=== PATIENT | female | born 1960 | race Caucasian/White ===

== ENCOUNTER 2024-10-31 08:40 | Observation (INO) ==
--- NOTE | 2024-10-29 08:31 | Communication Note ---
Date of Service: October 29, 2024 - Patient mentioned feeling an abnormal heart heart rate per PAT RN, this is also noted as chronic in PMHx. Message left requesting patient return call.
--- NOTE | 2024-10-29 09:51 | Anesthesiology Consultation ---
Date of Service October 29, 2024 Assessment & Plan (1) Encounter for pre-operative examination: Chart Review Chart Review: Pending: Refer to Additional Notes / Consult section (pending labs, EKG, as well as most recent PCP note) and Patient NOT seen in Pre Admission Testing Infectious Disease screening: Per PAT nursing assessment on 10/23/24, No known infectious disease contacts in past 10 days or current infectious disease symptoms. No recent travel outside the country. History Surgery Operation Date: 10/31/24 10:30 Proposed Procedures p Robotic assisted Hysterectomy, Bilateral Salpingo-Oophorectomy Ureterosacral Ligament Suspension, Anterior Colporrhaphy and Cystoscopy, Possible Sling - Jaylon Gurrola MD Height/Weight Height: 5 ft 3 in Weight: 65.771 kg Allergies Allergy/AdvReac Type Severity Reaction Status Date / Time No Known Allergies Allergy Verified 10/23/24 08:51 Medications Home Medications Medication Instructions Recorded Confirmed Last Taken atorvastatin 10 mg tablet (Lipitor) 10 mg PO QAM 10/23/24 10/23/24 Unknown fexofenadine-pseudoephedrine ER 1 tab PO QAM PRN allergis 10/23/24 10/23/24 Unknown 180 mg-240 mg tablet,ext.release 24 hr (Liv-D 24 Hour) fluticasone 250 mcg-salmeterol 50 1 inh inhalation BID 10/23/24 10/23/24 Unknown mcg/dose blistr powdr for inhalation (Advair Diskus) multivitamin-ferrous 1 tab PO DAILY 10/23/24 10/23/24 Unknown fumarate-folic acid 18 mg-400 mcg tablet (Centrum) pantoprazole 40 mg tablet,delayed 40 mg PO QAM 10/23/24 10/23/24 Unknown release Past Medical History Medical History (Updated 10/29/24 @ 09:51 by Tamera Figueroa PA-C) COPD (chronic obstructive pulmonary disease) "mild" ; uses Advair Frequent urination GERD (gastroesophageal reflux disease) History of anesthesia reaction 'mildly hard time waking up' per pt HLD (hyperlipidemia) Hx of colonic polyps Irregular heart beats No engraver picture; pt states that she 'occasionally feels irregular beats' Seasonal allergies Past Surgical History Surgical History History of esophagogastroduodenoscopy (EGD) History of lumbar surgery (2018) Hx of cholecystectomy (1977) Hx of colonoscopy with polypectomy Hx of varicose vein ligation and stripping (2009) Social History Smoking Status: Never smoker Do You Dip or Chew Tobacco: No Hx Alcohol Use: Yes alcohol intake frequency: a few times a month Hx Substance Use: No substance use type: does not use Testing Stress Test Date: 02/04/00 Type: exercise Findings: + WNL Exercise stress ECHO negative for inducible ischemia. The stress EKG response showed no evidence of ischemia. Occasional PVCs were noted during recovery stage. Baseline EKG was normal. 85% MPHR achieved (7METS) Resting ECHO: EF 55-59%, Gr I DD, no RWMA, No significant valve disease
--- NOTE | 2024-10-31 05:15 | History & Physical Report ---
Date of Service October 31, 2024 Assessment & Plan (1) Uterovaginal prolapse, incomplete: Plan: Failed pessary therapy and now desires surgery. She prefers robotic hysterectomy, bso, uterosacral ligament suspension, anterior colporrhaphy, and cystoscopy. We reviewed the risks of infection, bleeding, injury, pain, incontinence, failure. All questions answered. Informed consent confirmed. Present on Admission?: Yes Admission and Anticipated Discharge Date Admission Date: 10/31/2024 Anticipated date of discharge: 11/01/24 History of Present Illness Chief Complaint: uterovaginal prolapse Primary Care Provider: Boyd Alarcon MD Markell William is a 64 year old female P 3 here for evaluation of prolapse. Referred by Boyd Alarcon MD. Markell William complains of a vaginal bulge. She also has urinary frequency every 2 hours in the daytime and occasional urge incontinence. She denies LIZETT symptoms. She was diagnosed with uterine and bladder prolapse with Dr. Calixto in 2020. She tried a pessary but it was uncomfortable and she did not continue using it. Urinary: Leakage: urge Has leakage about once a week Wears pads: occasionally She denies a sense of incomplete bladder emptying. Prior/current treatment include: pessary UTI: denies Voiding detail: Daytime frequency: every 2 hours Urgency yes Nocturia:once a night Hesitancy no Straining no Hematuria no Postvoid dribbling no Postvoid urgency no Manual reduction no Prolapse: She admits a palpable bulge. Her bulge symptoms have worsened over the last few years Prior/ current treatments include pessary GI: Bowel habits: normal bowel movement She denies fecal incontinence. Prior/ current treatments include: none Allergies Allergy/AdvReac Type Severity Reaction Status Date / Time No Known Allergies Allergy Verified 10/23/24 08:51 Home Medications Medication Instructions Recorded Confirmed Type atorvastatin 10 mg tablet (Lipitor) 10 mg PO QAM 10/23/24 10/23/24 History fexofenadine-pseudoephedrine ER 1 tab PO QAM PRN allergis 10/23/24 10/23/24 History 180 mg-240 mg tablet,ext.release 24 hr (Liv-D 24 Hour) fluticasone 250 mcg-salmeterol 50 1 inh inhalation BID 10/23/24 10/23/24 History mcg/dose blistr powdr for inhalation (Advair Diskus) multivitamin-ferrous 1 tab PO DAILY 10/23/24 10/23/24 History fumarate-folic acid 18 mg-400 mcg tablet (Centrum) pantoprazole 40 mg tablet,delayed 40 mg PO QAM 10/23/24 10/23/24 History release Past Med/Surg History Problem List (Updated 10/31/24 @ 05:14 by Jaylon Gurrola MD) Uterovaginal prolapse, incomplete Encounter for pre-operative examination Medical History Frequent urination Seasonal allergies Irregular heart beats 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; pt states that she 'occasionally feels irregular beats' COPD (chronic obstructive pulmonary disease) "mild" ; uses Advair History of anesthesia reaction 'mildly hard time waking up' per pt Hx of colonic polyps HLD (hyperlipidemia) GERD (gastroesophageal reflux disease) Surgical History History of esophagogastroduodenoscopy (EGD) Hx of colonoscopy with polypectomy Hx of cholecystectomy (1977) Hx of varicose vein ligation and stripping (2009) History of lumbar surgery (2018) Social History Smoking Status: Never smoker Second Hand Exposure: No; Do You Dip or Chew Tobacco: No; Tobacco Cessation Education Requested by Patient: No Hx Alcohol Use: Yes Hx Substance Use: No Preferred Language: Armenian Communication Ability: Effective Customer Account Coordinator Required: No Beliefs That Will Affect Care: None Current Living Situation: Spouse Other Information That Helps Us Care for You: No Feels Safe at Home: Yes Safety Concerns: Feels Safe At This Time Assistive Devices: None Review of Systems Review of Systems: All systems reviewed & are unremarkable except as noted in HPI & below Physical Exam Constitutional: WD/WN, vitals as above Eyes: PERRL, conjunctivae normal, anicteric sclerae Neck: trachea midline, no thyromegaly Respiratory: normal respiratory effort and + respiratory distress Cardiovascular: Rate/Rhythm: regular rate and regular rhythm Gastrointestinal (Abdomen): normal bowel sounds, soft, nontender, no hepatosplenomegaly Musculoskeletal: no cyanosis or clubbing, extremities motor strength 5/5 Skin: no rashes, warm and dry Neurologic: PERRL, EOMI, accommodation nl, no face palsy, no dysarthria Psychiatric: A+Ox3, euthymic affect Code Status & VTE Plan VTE Prophylaxis Plan VTE Prophylaxis will be ordered: Yes
[2024-10-31] MEDS: cefOXitin 2,000 MG in DEXTROSE 5 % MINI-B 50 ML IV SCH (09:21)
--- OUTSIDE RECORDS SUMMARY | 2024-10-31 09:50 | External Medical Summary | Summary of Care ---
Author Name Unknown Organization [facility] Address [address] [place] [address] Phone [phone] Care Team Providers Care Radiological Technician Name Role Phone Boyd Alarcon MD Primary Care Provider Encounter Details Date Type Department Care Team (Late st Contact Info) Description 10/29/2024 Orders Only Urogynecology [facility] [address] [place] [address] Jaylon Gurrola MD [address] [place] [address] Allergies Active Allergy Reactions Criticality Noted Date Comments Pollen Other (Please comment) High 02/05/2020 Itchy watery eyes and congestion. Molds & Smuts 11/18/2019 Sneezing documented as of this encounter (statuses as of 10/29/2024) Medications fexofenadine-pse udoephedrine ER 60-120 mg per tab (ESTRELLA-D) 60-120 MG TB12 Take 1 Tablet by mouth in the morning and 1 Tablet before bedtime. Active famotidine (PEPCID) 10 MG TabletIndication s:Gastroesophage al reflux disease, esophagitis presence not specified Take 1 Tab by mouth 2 times a day. For heartburn 60 Tab 11 0 Active valACYclovir HCl 1 GM Oral Tablet (Valtrex) Take by mouth 2 Tablets in the morning AND 2 Tablets before bedtime. for cold sores. 4 Tablet 5 2 Active Atorvastatin Calcium 20 MG Oral Tablet (Lipitor) Take by mouth 1 Tablet in the morning. 90 Tablet 3 2 Active Additional Information Patient taking differently: 10 mgOral Daily(AM), Reported on 09/13/2022 LORazepam 0.5 MG Oral Tablet (Ativan) Take by mouth 1 Tablet daily as needed for Anxiety. 30 Tablet 2 Active Clinitest Rapid COVID-19 Test In Vitro Kit (COVID-19 At Home Antigen Test) use as directed 1 Kit 09/13/2022 12:28 PM EST 3 Active Pantoprazole Sodium 40 MG Oral Tablet Delayed Release (Protonix) TAKE ONE TABLET BY MOUTH EVERY DAY. 30 MINUTES BEFORE THE FIRST MEAL OF THE DAY. DO NOT CRUSH, SPLIT OR CHEW THE TABLET 90 Tablet 1 3 Active Fluticasone-Salm eterol 250-50 MCG/ACT Inhalation Aerosol Powder Breath Activated (Advair Diskus)Indicatio ns:Chronic obstructive pulmonary disease, unspecified COPD type (HCC) inhale 1 puff by mouth in the morning and 1 puff before bedtime 180 Each 3 Active documented as of this encounter (statuses as of 10/29/2024) Active Problems Problem Noted Date Diagnosed Date Hepatic cyst 08/09/2020 Overview (08/09/2020): F/U abdominal ultrasound due 05/2021. Fatty liver 08/09/2020 Overview (08/09/2020): GI evaluation 07/2020, continue to monitor LFTs yearly. Anxiety disorder Constipation COPD (chronic obstructive pulmonary disease) GERD (gastroesophageal reflux disease) Hypercholesteremia Osteopenia documented as of this encounter (statuses as of 10/29/2024) Resolved Problems Problem Noted Date Diagnosed Date Resolved Date Asthma 09/25/2019 documented as of this encounter (statuses as of 10/29/2024) Immunizations Name Administration Dates Next Due Pneumococcal Polysaccharide PPV23 (Pneumovax) Seasonal Influenza, PF, 6 M & above, IM , (FluLaval or Fluzone) 10/20/2020 TD - Tetanus/Diptheria (ADULT) 09/28/2017 documented as of this encounter Social History Tobacco Use Types Packs/Day Years Used Date Smoking Tobacco: Never Smokeless Tobacco: Never Alcohol Use Standard Drinks/Week Comments Yes 0 (1 standard drink = 0.6 oz pur e alcohol) on occasion PHQ-2 Answer Date Recorded PHQ-2 Score 0 01/27/2020 Hunger Vital Sign Answer Date Recorded Within the past 12 months, y ou worried that your food would run out before you got the money to buy more. Never true 03/26/20 23 Within the past 12 months, t he food you bought just didn't last and you didn't have money to get more. Never true 03/26/2023 Childcare Answer Date Recorded Do you feel overwhelmed with taking care of a child, family member or friend? No 03/26/2023 Does your family need help f inding childcare? (Household - for ages 0-17 years) Not on file 03/26/2023 Clothing Answer Date Recorded Have you been unable to get clothing when it was really needed? No 03/26/2023 Is your family able to get c lothes or diapers when needed? (Household - for ages 0-17 years) Not on file 03/26/2023 Personal Safety Answer Date Recorded Do you feel unsafe or have concerns for your saf ety? No 03/26/2023 Do you have concerns for you r family's safety? (Household - for ages 0-17 years) Not on file 03/26/2023 Utilities Answer Date Recorded Do you have trouble paying y our heating, water, or electric bill? No 03/26/2023 Is your family able to pay t he heat, water, or electric bill? (Household - for ages 0-17 years) Not on file 03/26/2023 Does your family have access to good internet? (Household - for ages 0-17 years) Not on file 03/26/2023 Employment Status Answer Date Recorded Are you unemployed or without regular income? No 03/26/2023 Does the household have a re gular source of income? (Household - for ages 0-17 years) Not on file 03/26/2023 Social Connections Answer Date Recorded How often do you feel lonely or isolated from th ose around you? Never 03/26/2023 Financial Resource Strain Answer Date R ecorded Do you have any trouble payi ng for your medications, or do you think you might in the future? No 03/26/2023 Does your family have troubl e paying for medicine? (Household - for ages 0-17 years) Not on file 03/26/2023 Transportation Needs Answer Date Record ed READ ONLY Do you have troubl e getting a ride to medical visits or work? Never True 03/26/2023 Does your family have a hard time getting a ride to doctors visits? (Household - for ages 0-17 years) Not on file 03/26/2023 Has lack of transportation k ept you from medical appointments, meetings, work, or from getting things needed for daily living? Check all that apply. (Adult - for ages 18 years and over) Not on file 03/26/2023 Do you (or your family) have trouble finding or paying for a ride (transportation)? (Household - for ages 0-17 years) Not on file 03/26/2023 Housing Stability Answer Date Recorded Do you currently live in a s helter or have no steady place to sleep at night? No 03/26/2023 READ ONLY Do you think you a re at risk of becoming homeless? No 03/26/2023 Does your family worry about paying for your home or becoming homeless? (Household - for ages 0-17 years) Not on file 0 03/26/2023 Are you homeless or worried that you might be in the future? (Adult - for ages 18 years and over) Not on file Are you (or your family) saloni eless or worried that you might be in the future? (Household - for ages 0-17 years) Not on file Food Insecurity Answer Date Recorded Do you need food for this week? No 03/26/2023 Are you able to get enough f ood for your family? (Household - for ages 0-17 years) Not on file 03/26/2023 Does your family need food t his week? (Household - for ages 0-17 years) Not on file 03/26/2023 Do you always have enough fo od for your family? (Household - for ages 0-17 years) Not on file 03/26/2023 Comments No Sex and Gender Information Value Date Recorded Sex Assigned at Female 05/09/2019 9:11 AM EDT Legal Sex Female 6:08 AM EST Gender Identity Female 05/09/2019 9:11 AM EDT Sexual Orientation Straight 05/09/2019 9: 11 AM EDT documented as of this encounter Plan of Treatment Upcoming Encounters Date Type Department Care Team (Late st Contact Info) Description 11/19/2024 8:00 AM EDT Telemedicine Urogynecology [facility] [address] [place] [address] Jaylon Gurrola MD [address] [place] [address] 12/10/2024 1:30 PM EDT Office Visit Urogynecology [facility] [address] [place] [address] Jaylon Gurrola MD [address] [place] [address] Scheduled Procedures Name Priority Associated Diagnoses Date/Ti nc ROBOTIC LAPAROSCOPIC HYSTERE CTOMY REMOVAL TUBES AND OVARIES FOR UTERUS 250GM OR LESS Uterovaginal prolapse, incomplete LAPAROSCOPY SURGICAL COLPOPEXY Uterovaginal prolapse, incomplete ANTERIOR COLPORRAPHY, REPAIR CYSTOCELE, CYSTO Uterovaginal prolapse, incomplete Health Maintenance Due Date Last Done Comments Alpha-1 Antitrypsin 01/09/1976 Cologuard 2003 Fecal Occult Blood Test 2003 Sigmoidoscopy 2003 Zoster Vaccines (1 of 2) 01/09/2008 DTap/Tdap Vaccines (1 - Tdap) 09/29/2017 09/28/2017 *COPD SEVERITY VERIFIED BY PFT 05/18/2018 Depression Screening 02/04/2021 02/05/2020 Pneumococcal Vaccine: 50+ Years (2 of 2 - PCV) 10/20/2021 10/20/2020 DXA Scan 2023 COVID-19 Vaccine (1 - season) 2024 Influenza Vaccine (FLU shot) (#1) 2024 10/20/2020 O2 ASSESSMENT COMPLETED IN PAST YEAR FOR COPD 01/29/2025 01/30/2024 Mammogram 07/01/2025 07/01/2024, 05/11, 03/28/2022, Additional history exists Diabetes Screening 10/29/2027 10/29/2024, 0 04/03/2024, 05/23/2022, Additional history exists Colonoscopy 01/29/2029 01/30/2024, 02/03/2021 Colorectal Cancer Screening 01/29/2029 Lipid Panel 04/03/2029 04/03/2024, 05/11, 01/25/2022, Additional history exists Pap Smear Discontinued 02/05/2020 HPV (Gardasil) Vaccine Aged Out No lo nger eligible based on patient's age to complete this topic Hepatitis B Vaccine Aged Out No longe r eligible based on patient's age to complete this topic MENINGOCOCCAL (MENACTRA/MENVEO) Aged Out No longer eligible based on patient's age to complete this topic Meningitis B Vaccine (Bexsero/Trumemba) Aged Out No longer eligible based on patient's age to complete this topic documented as of this encounter Medical Devices Not on filedocumented as of this encounter Procedures Procedure Name Priority Date/Time Associated Diagnosis Comments CHEMISTRY-OUTSIDE Routine 10/29/2024 documented in this encounter Results * CHEMISTRY-OUTSIDE (10/29/2024) Not all results display below - see scan for full detail SEE SCAN-BMP, CBC, TS OUTSIDE LAB (SEE SCANNED REPORT) CREATININE 0.65 0.6 - 1.2 MG/DL OUTSIDE LAB (SEE SCANNED REPORT) EGFR 97.04 OUTSIDE LA B (SEE SCANNED REPORT) POTASSIUM 4 3.5 - 5.1 MMOL/L OUTSIDE LAB (SEE SCANNED REPORT) GLUCOSE 86 70 - 99 MG/DL OUTSIDE LAB (SEE SCANNED REPORT) HOURS FASTING OUTSID E LAB (SEE SCANNED REPORT) TRIGLYCERIDES-OUT SIDE LAB OUTSIDE LAB (SEE SCANNED REPORT) CHOLESTEROL-OUTSI DE LAB OUTSIDE LAB (SEE SCANNED REPORT) HDL-OUTSIDE LAB OUTS POOJA LAB (SEE SCANNED REPORT) CHOL/HDL RATIO-OUTSIDE LAB OUTSIDE LA B (SEE SCANNED REPORT) LDL (CALCULATED)-OUTS POOJA LAB OUTSIDE LAB (SEE SCANNED REPORT) LDL (DIRECT MEASURE)-OUTSIDE LAB OUTSIDE LAB (SEE SCANNED REPORT) HEMOGLOBIN, I2K-SQIGDUX LAB OUTSIDE LAB (SEE SCANNED REPORT) PHOSPHORUS-OUTSID E LAB OUTSIDE LAB (SEE SCANNED REPORT) PTH-OUTSIDE LAB OUTS POOJA LAB (SEE SCANNED REPORT) MICROALBUMIN RATIO-OUTSIDE LAB OUTSIDE LA B (SEE SCANNED REPORT) PROTEIN, UA-OUTSIDE LAB OUTSIDE LAB (SEE SCANNED REPORT) HGB 14 12 - 16 G/DL OUTSIDE LAB (SEE SCANNED REPORT) 10/29/2024 us Jaylon Gurrola MD LABORATORY Final Result OUTSIDE LAB (SEE SCANNED REPORT) documented in this encounter Care Teams Radiological Technician Relationship Specialty Start Date End Date Boyd Alarcon MD [address] [place] [address] [place] [address] PCP - General Internal Medicine 08/29/23 documented as of this encounter
--- OUTSIDE RECORDS SUMMARY | 2024-10-31 09:50 | External Medical Summary | Summary of Care ---
Author Name Unknown Organization [facility] Address [address] [place] [address] Phone [phone] Care Team Providers Care Managing Principal Name Role Phone Boyd Alarcon MD Primary Care Provider Encounter Details Date Type Department Care Team (Late st Contact Info) Description 09/30/2024 Population Health External Data Unspecified Department Allergies Active Allergy Reactions Criticality Noted Date Comments Pollen Other (Please comment) High 02/05/2020 Itchy watery eyes and congestion. Molds & Smuts 11/18/2019 Sneezing documented as of this encounter (statuses as of 09/30/2024) Medications fexofenadine-pse udoephedrine ER 60-120 mg per [...] as of this encounter (statuses as of 09/30/2024) Active Problems Problem Noted Date Diagnosed Date Hepatic cyst 08/09/2020 Overview (08/09/2020): F/U abdominal ultrasound due 05/2021. Fatty liver 08/09/2020 Overview (08/09/2020): GI evaluation 07/2020, continue to monitor LFTs yearly. Anxiety disorder Constipation COPD (chronic obstructive pulmonary disease) GERD (gastroesophageal reflux disease) Hypercholesteremia Osteopenia documented as of this encounter (statuses as of 09/30/2024) Resolved Problems Problem Noted Date Diagnosed Date Resolved Date Asthma 09/25/2019 documented as of this encounter (statuses as of 09/30/2024) Immunizations Name Administration Dates Next Due Pneumococcal [...] Description 11/19/2024 8:00 AM EDT Telemedicine Urogynecology [facility] [address] [place] [address] Jaylon Gurrola MD [address] [place] [address] 12/10/2024 1:30 PM EDT Office Visit Urogynecology [facility] [address] [place] [address] Jaylon Gurrola MD [address] [place] [address] Scheduled Procedures Name Priority Associated Diagnoses Date/Ti ok ROBOTIC LAPAROSCOPIC HYSTERE CTOMY REMOVAL TUBES AND [...] 05/11, 03/28/2022, Additional history exists Diabetes Screening 04/03/2027 04/03/2024, 0 05/23/2022, 01/25/2022, Additional history exists Colonoscopy 01/29/2029 01/30/2024, 02/03/2021 [...] Not on filedocumented as of this encounter Care Teams Managing Principal Relationship Specialty Start Date End Date Boyd Alarcon MD [address] [place] [address] [place] [address] PCP - General Internal Medicine 08/29/23 documented as of this encounter
--- OUTSIDE RECORDS SUMMARY | 2024-10-31 09:50 | External Medical Summary | Summary of Care ---
Author Name Unknown Organization [facility] Address [address] [facility] [place] [address] Phone [phone] Care Team Providers Care Manager Distribution Center Name Role Phone Boyd Alarcon MD Primary Care Provider Reason for Visit * Reason Onset Date Comments Surgery 08/22/2024 Encounter Details Date Type Department Care Team (Late st Contact Info) Description 08/22/2024 Telephone Urogynecology [facility] [address] [place] [address] Jaylon Gurrola MD [address] [place] [address] Surgery Allergies Active Allergy Reactions Criticality Noted Date Comments Pollen Other (Please comment) High 02/05/2020 Itchy watery eyes and congestion. Molds & Smuts 11/18/2019 Sneezing documented as of this encounter (statuses as of 08/25/2024) Medications fexofenadine-pse udoephedrine ER 60-120 mg per [...] as of this encounter (statuses as of 08/25/2024) Active Problems Problem Noted Date Diagnosed Date Hepatic cyst 08/09/2020 Overview (08/09/2020): F/U abdominal ultrasound due 05/2021. Fatty liver 08/09/2020 Overview (08/09/2020): GI evaluation 07/2020, continue to monitor LFTs yearly. Anxiety disorder Constipation COPD (chronic obstructive pulmonary disease) GERD (gastroesophageal reflux disease) Hypercholesteremia Osteopenia documented as of this encounter (statuses as of 08/25/2024) Resolved Problems Problem Noted Date Diagnosed Date Resolved Date Asthma 09/25/2019 documented as of this encounter (statuses as of 08/25/2024) Immunizations Name Administration Dates Next Due Pneumococcal [...] AM EDT documented as of this encounter Miscellaneous Notes * Telephone Encounter - Marisabel Johnson OSA - 08/25/2024 2:41 PM EST Pt scheduled for 10/31/24 * Telephone Encounter - Marisabel Johnson OSA - 08/22/2024 10:47 AM EST Ok I talked to the pt. She is having it done at [facility]. But I didn't receive the surgery information.If you can send it to me again. Thanks * Telephone Encounter - Marisabel Johnson OSA - 08/22/2024 8:09 AM EST Pt is calling to schedule surgery. "She prefers robotic hysterectomy, bso, uterosacral ligament suspension, anterior colporrhaphy, and cystoscopy" Will this be done at [facility]? Please add case. Thanks documented in this encounter Plan of Treatment Upcoming Encounters Date Type Department Care Team (Late st Contact Info) Description 11/19/2024 8:00 AM EDT Telemedicine Urogynecology [facility] [address] [place] [address] Jaylon Gurrola MD [address] [place] [address] 12/10/2024 1:30 PM EDT Office Visit [facility] [address] [place] [address] Jaylon Gurrola MD [address] [place] [address] Scheduled Procedures Name Priority Associated Diagnoses Date/Ti me ROBOTIC LAPAROSCOPIC HYSTERE CTOMY REMOVAL TUBES AND [...] 05/18/2018 Depression Screening 02/04/2021 02/05/2020 Pneumococcal Vaccine: 65+ Years (2 of 2 - PCV) 10/20/2021 [...] Not on filedocumented as of this encounter Visit Diagnoses Diagnosis Uterovaginal prolapse, incomplete- Primary documented in this encounter Care Teams Manager Distribution Center Relationship Specialty Start Date End Date Boyd Alarcon MD [address] [place] [address] [place] [address] PCP - General Internal Medicine 08/29/23 documented as of this encounter
--- OUTSIDE RECORDS SUMMARY | 2024-10-31 09:50 | External Medical Summary | Summary of Care ---
Author Name Unknown Organization [facility] Address [address] [facility] [place] [address] Phone [phone] Care Team Providers Care Aviation Project Manager Name Role Phone Boyd Alarcon MD Primary Care Provider Reason for Referral * Evaluate & Treat - Unlimited Visits (Within 30 days (routine)) - Authorized Specialty Diagnoses / Procedures Referred By Contact Referred To Contact DISTRICT SUPERINTENDENT - Urogynecology / Gynecology Urology Diagnoses Female bladder prolapse, acquired Specialist, Self Referral To NO STREET ADDRESS AVAILABLE Referral ID Status Reason Start Date Expiration Date Visits Requested Visits Authorized [id number] Authorized Specialty Services Required [phone] Question Answer Referral Priority Within 30 days (routine) Where should this appointment be scheduled? [facility] What condition is the patient being referred for? Prolapse (dropped bladder, uterus, etc) Comments Pt states has dropped bladder Re-establish care Encounter Details Date Type Department Care Team (Late st Contact Info) Description 08/04/2024 Orders Only [facility] [place], [address] Ext *DO NOT REMOVE THIS DEPARTMENT* [place] [address] Specialist, Self Referral To NO STREET ADDRESS AVAILABLE Female bladder prolapse, acquired* Allergies Active Allergy Reactions Criticality Noted Date Comments Pollen Other (Please comment) High 02/05/2020 Itchy watery eyes and congestion. Molds & Smuts 11/18/2019 Sneezing documented as of this encounter (statuses as of 08/04/2024) Medications fexofenadine-pse udoephedrine ER 60-120 mg per [...] as of this encounter (statuses as of 08/04/2024) Active Problems Problem Noted Date Diagnosed Date Hepatic cyst 08/09/2020 Overview (08/09/2020): F/U abdominal ultrasound due 05/2021. Fatty liver 08/09/2020 Overview (08/09/2020): GI evaluation 07/2020, continue to monitor LFTs yearly. Anxiety disorder Constipation COPD (chronic obstructive pulmonary disease) GERD (gastroesophageal reflux disease) Hypercholesteremia Osteopenia documented as of this encounter (statuses as of 08/04/2024) Resolved Problems Problem Noted Date Diagnosed Date Resolved Date Asthma 09/25/2019 documented as of this encounter (statuses as of 08/04/2024) Immunizations Name Administration Dates Next Due Pneumococcal [...] y our heating, water, or electric bill? (Adult - for ages 18 years and over) Not on file 04/01/2024 Is your family able to pay t he heat, water, or electric bill? (Household - for ages 0-17 years) Not on file 04/01/2024 Does your family have access to good internet? (Household - for ages 0-17 years) Not on file 04/01/2024 Employment Status Answer Date Recorded Are you unemployed or without regular income? No 03/26/2023 Does the household have a re gular source of income? (Household - for ages 0-17 years) Not on file 03/26/2023 Social Connections Answer Date Recorded How often do you feel lonely or isolated from those around you? (Adult - for ages 18 years and over) Not on file 04/01/2024 Financial Resource Strain Answer Date R ecorded [...] Care Team (Late st Contact Info) Description 08/11/2024 12:50 PM EST Office Visit Urogynecology [facility] [address] [place] [address] Jaylon Gurrola MD [address] [place] [address] Scheduled Referrals Name Type Priority Associated Diagnoses Order Schedule UROGYNECOLOGY CLINIC REFERRAL OP (FEMALE ONLY) Referral Within 30 days (routine) Female bladder prolapse, acquired Ordered: 08/04/2024 Health Maintenance Due Date Last Done Comments [...] as of this encounter Visit Diagnoses Diagnosis Female bladder prolapse, acquired- Primary Cystocele, midline documented in this encounter Care Teams Aviation Project Manager Relationship Specialty Start Date End Date Boyd Alarcon MD [address] [place] [address] [place] [id number] PCP - General Internal Medicine 08/29/23 documented as of this encounter
--- OUTSIDE RECORDS SUMMARY | 2024-10-31 09:50 | External Medical Summary | Summary of Care ---
Author Name Unknown Organization [facility] Address [address] [facility] [address] Phone [phone] Care Team Providers Care Reed Maker Name Role Phone Boyd Alarcon MD Primary Care Provider Reason for Visit * Reason Comments NEW PATIENT * Evaluate & Treat - Unlimited Visits (Within 30 days (routine)) - Authorized Specialty Diagnoses / Procedures Referred By Contact Referred To Contact CRANE OPERATOR CAB - Urogynecology / Gynecology Urology Diagnoses Female bladder prolapse, acquired Specialist, Self Referral To STREET ADDRESS AVAILABLE Referral ID Status Reason Start Date Expiration Date Visits Requested Visits Authorized [id number] Authorized Specialty Services Required [phone] Encounter Details Date Type Department Care Team (Late st Contact Info) Description 08/11/2024 12:50 PM EST Office Visit Urogynecology [facility] [address] [place] [address] Jaylon Gurrola MD [address] [facility] [place] [address] Uterovaginal prolapse, incomplete*; Urge incontinence; Urinary urgency; Urinary frequency Allergies Active Allergy Reactions Criticality Noted Date Comments Pollen Other (Please comment) High 02/05/2020 Itchy watery eyes and congestion. Molds & Smuts 11/18/2019 Sneezing documented as of this encounter (statuses as of 08/11/2024) Medications fexofenadine-pse udoephedrine ER 60-120 mg per [...] as of this encounter (statuses as of 08/11/2024) Active Problems Problem Noted Date Diagnosed Date Hepatic cyst 08/09/2020 Overview (08/09/2020): F/U abdominal ultrasound due 05/2021. Fatty liver 08/09/2020 Overview (08/09/2020): GI evaluation 07/2020, continue to monitor LFTs yearly. Anxiety disorder Constipation COPD (chronic obstructive pulmonary disease) GERD (gastroesophageal reflux disease) Hypercholesteremia Osteopenia documented as of this encounter (statuses as of 08/11/2024) Resolved Problems Problem Noted Date Diagnosed Date Resolved Date Asthma 09/25/2019 documented as of this encounter (statuses as of 08/11/2024) Immunizations Name Administration Dates Next Due Pneumococcal [...] AM EDT documented as of this encounter Last Filed Vital Signs Vital Sign Reading Time Taken Comments Blood Pressure 128/82 08/11/2024 12:19 PM EST Pulse - - Temperature - - Respiratory Rate - - Oxygen Saturation - - Inhaled Oxygen Concentration - - Weight 65.3 kg (144 lb) 08/11/2024 12:19 PM EST Height 157.5 cm (5' 2") 08/11/2024 12:19 PM EST Body Mass Index 26.34 08/11/2024 12:19 PM EST documented in this encounter Progress Notes * Jaylon Gurrola MD - 08/11/2024 12:16 PM EST Markell William is a 64 year old female P 3 here for evaluation of prolapse. Referred by Boyd Alarcon MD. Markell William complains of a vaginal bulge. She also has urinary frequency every 2 hours in the daytime and occasional urge incontinence. She denies LIZETT symptoms. She was diagnosed with uterine and bladder prolapse with Dr. Calixto in 2020. She tried a pessary but it was uncomfortable and she did not continue using it. Urinary: Leakage: urge Has leakage about once a week Wears pads: occasionally She denies a sense of incomplete bladder emptying. Prior/current treatment include: pessary UTI: denies Voiding detail: Daytime frequency: every 2 hours Urgency yes Nocturia:once a night Hesitancy no Straining no Hematuria no Postvoid dribbling no Postvoid urgency no Manual reduction no Prolapse: She admits a palpable bulge. Her bulge symptoms have worsened over the last few years Prior/ current treatments include pessary GI: Bowel habits: normal bowel movement She denies fecal incontinence. Prior/ current treatments include: none Gynecologic history: endometrioisis. Medical History: Patient Active Problem List Diagnosis Anxiety disorder Constipation COPD (chronic obstructive pulmonary disease) (HCC) GERD (gastroesophageal reflux disease) Hypercholesteremia Osteopenia Hepatic cyst Fatty liver Past Medical History: Diagnosis Date Allergic rhinitis Anxiety disorder Asthma Constipation COPD (chronic obstructive pulmonary disease) (HCC) GERD (gastroesophageal reflux disease) Hypercholesteremia Osteopenia Venous insufficiency Patient sees Boyd Alarcon MD as her primary care provider. Surgical History: Past Surgical History: Procedure Laterality Date ANESTH, LUMBAR SPINE/CORD SURGERY L4-L5 surgery BREAST BIOPSY CARPAL TUNNEL SURGERY EGD, FLEXIBLE, DIAGNOSTIC 12/30/2021 Dr. [place] [facility] PUNCTURE ASPIRATION OF CYST OF BREAST KNEE ARTHROSCOPY/SURGERY LIGATE/CUT OVIDUCT(S) REMOVE GALLBLADDER VASCULAR SURGERY PROCEDURE NEC OB History 3 Para 3 Term 3 AB Living SAB IAB Ectopic Multiple Live Births Vaginal deliveries: 3 C/S: 0 Allergies: Review of patient's allergies indicates: Allergen Reactions Environmental [Pollen] Other (Please comment) Itchy watery eyes and congestion. Molds & Smuts Sneezing Active Medications: Current Outpatient Medications Medication Sig Dispense Refill fexofenadine-pseudoephedrine ER 60-120 mg per tab (ESTRELLA-D) 60-120 MG TB12 Take 1 Tablet by mouthin the morning and 1 Tablet before bedtime. famotidine (PEPCID) 10 MG Tablet Take 1 Tab by mouth 2 times a day. For heartburn 60 Tab 11 valACYclovir HCl 1 GM Oral Tablet (Valtrex) Take by mouth 2 Tablets in the morning AND 2 Tablets before bedtime. for cold sores. 4 Tablet 5 Atorvastatin Calcium 20 MG Oral Tablet (Lipitor) Take by mouth 1 Tablet in the morning. (Patient taking differently: Take 0.5 Tablets by mouth in the morning.) 90 Tablet 3 LORazepam 0.5 MG Oral Tablet (Ativan) Take by mouth 1 Tablet daily as needed for Anxiety. 30 Tablet0 Clinitest Rapid COVID-19 Test In Vitro Kit (COVID-19 At Home Antigen Test) use as directed 1 Kit 0 Pantoprazole Sodium 40 MG Oral Tablet Delayed Release (Protonix) TAKE ONE TABLET BY MOUTH EVERY DAY. 30 MINUTES BEFORE THE FIRST MEAL OF THE DAY. DO NOT CRUSH, SPLIT OR CHEW THE TABLET 90 Tablet 1 Fluticasone-Salmeterol 250-50 MCG/ACT Inhalation Aerosol Powder Breath Activated (Advair Diskus) inhale 1 puff by mouth in the morning and 1 puff before bedtime 180 Each 0 No current facility-administered medications for this visit. Social History: Social History Socioeconomic History Marital status: Tobacco Use Smoking status: Never Smokeless tobacco: Never Vaping Use Vaping status: Never Used Substance and Sexual Activity Alcohol use: Yes Comment: on occasion Drug use: No Sexual activity: Yes Partners: Male Social Needs Financial Resource Strain: Low Risk (03/26/2023) Financial Resource Strain Do you have any trouble paying for your medications, or do you think you might in the future? (Adult - for ages 18 years and over): No Food Insecurity: No Food Insecurity (03/26/2023) Food Insecurity Do you need food for this week? (Adult - for ages 18 years and over): No Transportation Needs: No Transportation Needs (03/26/2023) Transportation Needs Do you have trouble getting a ride to medical visits or work? (Adult - for ages 18 years and over):Never True Social Connections Housing Stability: Low Risk (03/26/2023) Housing Stability Do you currently live in a fpc or have no steady place to sleep at night? (Adult - for ages 18 years and over): No Do you think you are at risk of becoming homeless? (Adult - for ages 18 years and over): No Family History: Family History Problem Relation Name Age of Onset Cancer Mother Cancer Father Cancer Grandfather (Maternal) Cancer Aunt (Unspecified) Cancer Uncle (Unspecified) Breast Cancer Aunt (Paternal) Simi Breast Cancer Aunt (Paternal) Izabel CONSTITUTIONAL ROS: No change in weight, No weakness and No fatigue NECK ROS: No lumps or masses, PULMONARY ROS: No recent change in breathing CARDIOVASCULAR ROS: No chest pain, No shortness of breath and No dyspnea on exertion BREAST ROS: denies GASTROINTESTINAL ROS: No abdominal pain,as per HPI GENITO-URINARY FEMALE ROS: As per HPI MSK/EXTREMITIES ROS: occasional low back pain SKIN/INTEGUMENTARY ROS: No rash and No itching NEUROLOGICAL ROS: Normal balance No weakness PSYCHIATRIC ROS: no depression and no anxiety Bricklayer Sewer Documentation: Provider requested senior accountant cpa Name of Bricklayer Sewer: Kristi Bravo Blood pressure 128/82, height 1.575 m (5' 2"), weight 65.3 kg (144 lb), last menstrual period 07/15/2006. Blood pressure %deysi are not available for patients who are 18 years or older. Body mass index is 26.34 kg/m. EXAM: Well developed well nourished female in no apparent distress. Alert oriented x3 HEENT: NC AT HEART: Normal peripheral pulse, edema neg THYROID: no obvious neck mass LUNG: No increased respiratory effort ABDOMEN: Soft, NT, ND, no masses PELVIC EXAM: Ext. Gen: Normal external female genitalia, no vulvar lesions. Clitoris, labia, minor vestibular glands and urethral meatus appear normal. Urethra and bladder palpated non-tender with no masses and no expressible exudate. Vagina atrophic without lesions. Cervix: nl BIMANUAL EXAM: no cervical motion tenderness, the uterus is smooth, mobile, non tender and of normal size. No adnexal masses or tenderness elicited. SUPERVISOR PRINT LINE: neg Levator ani muscle strength 3. No tenderness elicited on palpation Rectovaginal exam: perianal area normal, anus normal, digital rectal exam deferred Aa 0 Ba 0 C -4 GH 3 PB 3 TVL 10 Ap -2 Bp -2 D -5 The following data points/ labs were reviewed: Results for orders placed or performed in visit on 04/03/24 BASIC METABOLIC PANEL Result Value Ref Range BUN 9 6 - 20 mg/dL CREATININE 0.7 0.5 - 1.0 mg/dL EGFR >90 >=60 mL/min SODIUM 138 135 - 146 mmol/L POTASSIUM 3.4 (L) 3.5 - 5.1 mmol/L CHLORIDE 101 98 - 107 mmol/L CO2 25 22 - 32 mmol/L ANION GAP 12 7 - 15 mmol/L GLUCOSE 94 70 - 120 mg/dL CALCIUM 9.5 8.4 - 10.2 mg/dL HEPATIC FUNCTION PANEL Result Value Ref Range Albumin 4.5 3.8 - 5.0 g/dL AST 24 10 - 35 U/L Alkaline Phosphatase 113 35 - 130 U/L ALT 19 10 - 35 U/L Bilirubin, Total 0.4 <=1.2 mg/dL Bilirubin, Direct <0.2 0.0 - 0.3 mg/dL Protein 7.3 6.0 - 8.3 g/dL LIPID PANEL WITHOUT DIRECT LDL Result Value Ref Range Triglycerides 64 <=174 mg/dL Cholesterol 210 (H) <200 mg/dL HDL Cholesterol 77 >49 mg/dL Non-HDL Cholesterol 133 <=159 mg/dL LDL Cholesterol 120 <=129 mg/dL FOLIC ACID Result Value Ref Range Folic Acid 18.9 >4.5 ng/mL T3, TOTAL Result Value Ref Range T3, Total 128 80 - 200 ng/dL T4, FREE Result Value Ref Range T4, Free 1.2 0.9 - 1.7 ng/dL TSH Result Value Ref Range TSH 1.15 0.27 - 4.20 uIU/mL VITAMIN B12 Result Value Ref Range Vitamin B12 598 232 - 1,245 pg/mL CRP, HIGH SENSITIVITY (CARDIOVASCULAR RISK) Result Value Ref Range CRP, High Sensitivity (Cardiovascular Risk) 4.24 (H) <=3.00 mg/L LIPOPROTEIN (A) Result Value Ref Range Lipoprotein (A) 49 <75 nmol/L CBC Result Value Ref Range WBC 5.49 4.00 - 10.80 K/uL RBC 4.37 3.85 - 5.15 M/uL HGB 13.9 12.0 - 15.3 g/dL HCT 42.4 36.0 - 45.2 % MCV 97.0 81.5 - 97.5 fL MCH 31.8 27.0 - 34.0 pg MCHC 32.8 32.0 - 36.0 g/dL RDW 13.5 11.5 - 15.5 % PLT 255 140 - 400 K/uL MPV 10.4 6.6 - 11.1 fL DIFFERENTIAL, AUTOMATED Result Value Ref Range WBC 5.49 4.00 - 10.80 K/uL Neutrophils % 52.5 40.0 - 75.0 % Lymphocytes % 30.4 18.0 - 42.0 % Monocytes % 11.8 (H) 1.0 - 11.0 % Eosinophils % 4.6 0.0 - 6.0 % Basophils % 0.7 0.0 - 2.0 % Absolute Neutrophils 2.88 1.80 - 7.70 K/uL Absolute Lymphocytes 1.67 1.00 - 4.80 K/ul Absolute Monocytes 0.65 0.00 - 1.10 K/uL Absolute Eosinophils 0.25 0.00 - 0.70 K/uL Absolute Basophils 0.04 0.00 - 0.20 K/uL PVR: 31 ml via bladder scan Records/ Imaging/ Results reviewed include: Urogynecology notes from 2020 Impression: This is a 64 year old with: Uterovaginal prolapse, incomplete (Primary) Urge incontinence Urinary urgency Urinary frequency Failed medical therapy and now desires surgery. She prefers robotic hysterectomy, bso, uterosacral ligament suspension, anterior colporrhaphy, and cystoscopy. We reviewed the risks of infection, bleeding, injury, pain, incontinence, failure. All questions answered. Jaylon Gurrola MD 08/11/2024 12:16 PM I spent a total of 55 minutes on the date of service in preparation, delivery, and documentation ofthe care provided to Markell William excluding any time spent in the performance of separately billed services. documented in this encounter Nursing Notes * Kristi Bravo LPN - 08/11/2024 12:21 PM EST Pt presents to clinic as a new pt Seen previously [place] [address] Gramajo- tried pessary but did not like it. Wanting to see what her options are. Urgency- Leaking a little amount Frequency- Q2H Nocturia- 1x PVR- 31 documented in this encounter Plan of Treatment Scheduled Orders Name Type Priority Associated Diagnoses Orde r Schedule CBC Lab Routine Uterovaginal prolapse, incomplete Expected: 08/11/2024, Expires: 08/11/2025 BASIC METABOLIC PANEL Lab Routine Uterovaginal prolapse, incomplete Expected: 08/11/2024, Expires: 08/11/2025 EKG EKG Routine Uterovaginal prolapse, incomplete Expected: 08/11/2024 (Approximate), Expires: 08/11/2025 TYPE AND SCREEN Lab Routine Uterovaginal prolapse, incomplete Expected: 09/11/2024, Expires: 02/09/2025 ABO/RH Lab Routine Uterovaginal prolapse, incomplete Expected: 08/11/2024, Expires: 09/11/2025 Scheduled Procedures Name Priority Associated Diagnoses Date/Ti [...] Visit Diagnoses Diagnosis Uterovaginal prolapse, incomplete- Primary Urge incontinence Urinary urgency Urgency of urination Urinary frequency documented in this encounter Care Teams Reed Maker Relationship Specialty Start Date End Date Boyd Alarcon MD [address] [place] [address] [place] [address] PCP - General Internal Medicine 08/29/23 documented as of this encounter
--- OUTSIDE RECORDS SUMMARY | 2024-10-31 09:50 | External Medical Summary | Summary of Care ---
Author Name Unknown Organization [facility] Address [address] [facility] [place] [address] Phone [phone] Care Team Providers Care Certified Wellness Program Coordinator Name Role Phone Boyd Alarcon MD Primary Care Provider Reason for Visit * Reason Comments NEW PATIENT * Evaluate & Treat - Unlimited Visits (Within 30 days (routine)) - Authorized Specialty Diagnoses / Procedures Referred By Contact Referred To Contact SERVICE INSPECTOR - Urogynecology / Gynecology Urology Diagnoses Female bladder prolapse, acquired Specialist, Self Referral To NO STRE[address] ADDRESS AVAILABLE Referral ID Status Reason Start Date Expiration Date Visits Requested Visits Authorized [id number] Authorized Specialty Services Required [phone] Encounter Details Date Type Department Care Team (Late st Contact Info) Description 08/11/2024 12:50 PM EST Office Visit Urogynecology [facility] [address] [place] [address] Jaylon Gurrola MD [address] [facility] [place] [id number] Uterovaginal prolapse, incomplete*; Urge incontinence; Urinary urgency; Urinary frequency Allergies Active Allergy Reactions Criticality Noted Date Comments Pollen Other (Please comment) High 02/05/2020 Itchy watery eyes and congestion. Molds & Smuts 11/18/2019 Sneezing documented as of this encounter (statuses as of 10/31/2024) Medications fexofenadine-pse udoephedrine ER 60-120 mg per [...] as of this encounter (statuses as of 10/31/2024) Active Problems Problem Noted Date Diagnosed Date Hepatic cyst 08/09/2020 Overview (08/09/2020): F/U abdominal ultrasound due 05/2021. Fatty liver 08/09/2020 Overview (08/09/2020): GI evaluation 07/2020, continue to monitor LFTs yearly. Anxiety disorder Constipation COPD (chronic obstructive pulmonary disease) GERD (gastroesophageal reflux disease) Hypercholesteremia Osteopenia documented as of this encounter (statuses as of 10/31/2024) Resolved Problems Problem Noted Date Diagnosed Date Resolved Date Asthma 09/25/2019 documented as of this encounter (statuses as of 10/31/2024) Immunizations Name Administration Dates Next Due Pneumococcal [...] Stability Do you currently live in a prison or have no steady place to sleep [...] PSYCHIATRIC ROS: no depression and no anxiety Housekeeper Head Documentation: Provider requested extension service supervisor Name of Housekeeper Head: Kristi Bravo Blood pressure 128/82, height 1.575 [...] size. No adnexal masses or tenderness elicited. TIRE SPOTTER: neg Levator ani muscle strength 3. No [...] Description 11/19/2024 8:00 AM EDT Telemedicine [facility] [address] [place] [address] Jaylon Gurrola MD [address] [place] [address] 12/10/2024 1:30 PM EDT [facility] [address] [place] [address] Jaylon Gurrola MD [address] [place] [address] Scheduled Orders Name Type Priority Associated Diagnoses [...] Scheduled Procedures Name Priority Associated Diagnoses Date/Ti co ROBOTIC LAPAROSCOPIC HYSTERE CTOMY REMOVAL TUBES AND [...] frequency documented in this encounter Care Teams Certified Wellness Program Coordinator Relationship Specialty Start Date End Date Boyd Alarcon MD [facility] [address] [place] [address] [place] [address] PCP - General Internal Medicine 08/29/23 documented as of this encounter
--- OUTSIDE RECORDS SUMMARY | 2024-10-31 09:50 | External Medical Summary | Summary of Care ---
Author Name Unknown Organization [facility] Address [address] [facility] [place] [address] Phone [phone] Care Team Providers Care Multiple Tube Winding Machine Operator Name Role Phone Boyd Alarcon MD Primary Care Provider Reason for Visit * Reason Onset Date Comments Other 10/03/2024 Encounter Details Date Type Department Care Team (Late st Contact Info) Description 10/03/2024 Telephone Urogynecology [facility] [address] [place] [address] Jaylon Gurrola MD [address] [place] [address] Other Allergies Active Allergy Reactions Criticality Noted Date Comments Pollen Other (Please comment) High 02/05/2020 Itchy watery eyes and congestion. Molds & Smuts 11/18/2019 Sneezing documented as of this encounter (statuses as of 10/03/2024) Medications fexofenadine-pse udoephedrine ER 60-120 mg per [...] as of this encounter (statuses as of 10/03/2024) Active Problems Problem Noted Date Diagnosed Date Hepatic cyst 08/09/2020 Overview (08/09/2020): F/U abdominal ultrasound due 05/2021. Fatty liver 08/09/2020 Overview (08/09/2020): GI evaluation 07/2020, continue to monitor LFTs yearly. Anxiety disorder Constipation COPD (chronic obstructive pulmonary disease) GERD (gastroesophageal reflux disease) Hypercholesteremia Osteopenia documented as of this encounter (statuses as of 10/03/2024) Resolved Problems Problem Noted Date Diagnosed Date Resolved Date Asthma 09/25/2019 documented as of this encounter (statuses as of 10/03/2024) Immunizations Name Administration Dates Next Due Pneumococcal [...] Telephone Encounter - Marisabel Johnson OSA - 10/03/2024 1:08 PM EST Faxed preop lab orders to [facility]. documented in this encounter Plan of Treatment Upcoming Encounters Date Type Department Care Team (Late st Contact Info) Description 11/19/2024 8:00 AM EDT Telemedicine [facility] [address] [place] [address] Jaylon Gurrola MD [address] [place] [address] 12/10/2024 1:30 PM EDT [facility] [address] [place] [address] Jaylon Gurrola MD [address] [place] [address] Scheduled Procedures Name Priority Associated Diagnoses Date/Ti mn ROBOTIC LAPAROSCOPIC HYSTERE CTOMY REMOVAL TUBES AND [...] DXA Scan 2023 COVID-19 Vaccine (1 - 2023- season) 2024 Influenza Vaccine (FLU shot) (#1) [...] filedocumented as of this encounter Care Teams Multiple Tube Winding Machine Operator Relationship Specialty Start Date End Date Boyd Alarcon MD [address] [place] [address] [place] [address] PCP - General Internal Medicine 08/29/23 documented as of this encounter
--- OUTSIDE RECORDS SUMMARY | 2024-10-31 09:50 | External Medical Summary | Summary of Care ---
Author Name Unknown Organization [facility] Address [address] [facility] [place] [address] Phone [phone] Care Team Providers Care Wire Saw Operator Name Role Phone Boyd Alarcon MD Primary Care Provider Encounter Details Date Type Department Care Team (Late st Contact Info) Description 08/19/2024 Orders Only PATIENT PORTAL DO NOT DELETE THIS DEPT USED BY [place] [id number] Allergies Active Allergy Reactions Criticality Noted Date Comments Pollen Other (Please comment) High 02/05/2020 Itchy watery eyes and congestion. Molds & Smuts 11/18/2019 Sneezing documented as of this encounter (statuses as of 08/19/2024) Medications fexofenadine-pse udoephedrine ER 60-120 mg per [...] as of this encounter (statuses as of 08/19/2024) Active Problems Problem Noted Date Diagnosed Date Hepatic cyst 08/09/2020 Overview (08/09/2020): F/U abdominal ultrasound due 05/2021. Fatty liver 08/09/2020 Overview (08/09/2020): GI evaluation 07/2020, continue to monitor LFTs yearly. Anxiety disorder Constipation COPD (chronic obstructive pulmonary disease) GERD (gastroesophageal reflux disease) Hypercholesteremia Osteopenia documented as of this encounter (statuses as of 08/19/2024) Resolved Problems Problem Noted Date Diagnosed Date Resolved Date Asthma 09/25/2019 documented as of this encounter (statuses as of 08/19/2024) Immunizations Name Administration Dates Next Due Pneumococcal [...] as of this encounter Plan of Treatment Scheduled Procedures Name Priority Associated Diagnoses Date/Ti [...] filedocumented as of this encounter Care Teams Wire Saw Operator Relationship Specialty Start Date End Date Boyd Alarcon MD [facility] [address] [place] [address] [place] [address] PCP - General Internal Medicine 08/29/23 documented as of this encounter
--- OUTSIDE RECORDS SUMMARY | 2024-10-31 09:51 | External Medical Summary | Summary of Care ---
Author Name Unknown Organization [facility] Address [address] [place] [address] Phone [phone] Care Team Providers Care Lithographic Press Feeder Name Role Phone Boyd Alarcon MD Primary Care Provider Encounter Details Date Type Department Care Team (Late st Contact Info) Description 07/28/2024 Orders Only Outcomes Research Department [address] [place] [address] Darline Hernandez [employer] Research Other*[id number] Allergies Active Allergy Reactions Criticality Noted Date Comments Pollen Other (Please comment) High 02/05/2020 Itchy watery eyes and congestion. Molds & Smuts 11/18/2019 Sneezing documented as of this encounter (statuses as of 07/28/2024) Medications fexofenadine-pse udoephedrine ER 60-120 mg per [...] as of this encounter (statuses as of 07/28/2024) Active Problems Problem Noted Date Diagnosed Date Hepatic cyst 08/09/2020 Overview (08/09/2020): F/U abdominal ultrasound due 05/2021. Fatty liver 08/09/2020 Overview (08/09/2020): GI evaluation 07/2020, continue to monitor LFTs yearly. Anxiety disorder Constipation COPD (chronic obstructive pulmonary disease) GERD (gastroesophageal reflux disease) Hypercholesteremia Osteopenia documented as of this encounter (statuses as of 07/28/2024) Resolved Problems Problem Noted Date Diagnosed Date Resolved Date Asthma 09/25/2019 documented as of this encounter (statuses as of 07/28/2024) Immunizations Name Administration Dates Next Due Pneumococcal [...] money to buy more. Never true 03/26/20 Within the past 12 months, t he [...] of this encounter Plan of Treatment Scheduled Orders Name Type Priority Associated Diagnoses Orde r Schedule MYCODE SUBSEQUENT ADULT Lab Routine My[facility] Research Other*[id number] Every 6 Months for 2 Occurrences starting 07/28/2024 until 08/17/2025 Health Maintenance Due Date Last Done Comments [...] as of this encounter Visit Diagnoses Diagnosis [employer] Research Other*[id number] documented in this encounter Care Teams Lithographic Press Feeder Relationship Specialty Start Date End Date Boyd Alarcon MD [facility] [place] [address] [place] [address] PCP - General Internal Medicine 08/29/23 documented as of this encounter
--- OUTSIDE RECORDS SUMMARY | 2024-10-31 09:51 | External Medical Summary | Summary of Care ---
Author Name Unknown Organization [facility] Address [address] [place] [address] Phone [phone] Care Team Providers Care Policy Change Clerk Name Role Phone Boyd Alarcon MD Primary Care Provider Encounter Details Date Type Department Care Team (Latest Contact Info) Description 07/01/2024 2:42 PM EDT - 07/01/2024 11:59 PM EDT Hospital Encounter Radiology, [facility] [address] [place] [address] Arrived Discharge Disposition: Home - Self Care Allergies Active Allergy Reactions Criticality Noted Date Comments Pollen Other (Please comment) High 02/05/2020 Itchy watery eyes and congestion. Molds & Smuts 11/18/2019 Sneezing documented as of this encounter (statuses as of 07/02/2024) Medications Medication Sig Dispensed Refills Start Date End Date Status fexofenadine-pseudo ephedrine ER 60-120 mg per tab (ESTRELLA-D) 60-120 MG TB12 Take 1 Tablet by mouth in the morning and 1 Tablet before bedtime. Active famotidine (PEPCID) 10 MG TabletIndications:G astroesophageal reflux disease, esophagitis presence not specified Take 1 Tab by mouth 2 times a day. For heartburn 60 Tab 11 01/27/2020 Active valACYclovir HCl 1 GM Oral Tablet (Valtrex) Take by mouth 2 Tablets in the morning AND 2 Tablets before bedtime. for cold sores. 4 Tablet 5 01/17/2022 Active Atorvastatin Calcium 20 MG Oral Tablet (Lipitor) Take by mouth 1 Tablet in the morning. 90 Tablet 3 01/27/2022 Active Additional Information Patient taking differently: 10 mgOral Daily(AM), Reported on 09/13/2022 LORazepam 0.5 MG Oral Tablet (Ativan) Take by mouth 1 Tablet daily as needed for Anxiety. 30 Tablet 04/18/2022 Active Clinitest Rapid COVID-19 Test In Vitro Kit (COVID-19 At Home Antigen Test) use as directed 1 Kit 09/13/2022 Active Pantoprazole Sodium 40 MG Oral Tablet Delayed Release (Protonix) TAKE ONE TABLET BY MOUTH EVERY DAY. 30 MINUTES BEFORE THE FIRST MEAL OF THE DAY. DO NOT CRUSH, SPLIT OR CHEW THE TABLET 90 Tablet 1 10/26/2022 Active Fluticasone-Salmete rol 250-50 MCG/ACT Inhalation Aerosol Powder Breath Activated (Advair Diskus)Indications: Chronic obstructive pulmonary disease, unspecified COPD type (HCC) inhale 1 puff by mouth in the morning and 1 puff before bedtime 180 Each 08/06/2023 Active documented as of this encounter (statuses as of 07/02/2024) Active Problems Problem Noted Date Diagnosed Date Hepatic cyst 08/09/2020 Overview: F/U abdominal ultrasound due 05/2021. Fatty liver 08/09/2020 Overview: GI evaluation 07/2020, continue to monitor LFTs yearly. Anxiety disorder Constipation COPD (chronic obstructive pulmonary disease) GERD (gastroesophageal reflux disease) Hypercholesteremia Osteopenia documented as of this encounter (statuses as of 07/02/2024) Resolved Problems Problem Noted Date Diagnosed Date Resolved Date Asthma 09/25/2019 documented as of this encounter (statuses as of 07/02/2024) Immunizations Name Administration Dates Next Due Pneumococcal [...] ages 0-17 years) Not on file 03/26/2023 Sex and Gender Information Value Date Recorded Sex Assigned at Female 05/09/2019 9:11 AM EDT Gender Identity Female 05/09/2019 9:11 AM EDT Sexual Orientation Straight 05/09/2019 9: 11 AM EDT Job Start Date Occupation Industry Not on file Not on file Not on file documented as of this encounter Plan of Treatment Health Maintenance Due Date Last Done Comments [...] Procedure Name Priority Date/Time Associated Diagnosis Comments MAMMOGRAM SCREENING AMY BILATERAL Routine 07/01/2024 3:07 PM EDT Screening mammogram, encounter for documented in this encounter Results * MAMMOGRAM SCREENING AMY BILATERAL (07/01/2024 3:07 PM EDT) Anatomical Region Laterality Modality Breast Bilateral Mammography Narrative 07/01/2024 3:51 PM EDT Result MAMMOGRAM SCREENING AMY BILATERAL History Screening mammogram, encounter for Family medical history includes breast cancer in 2 relatives (aunt (paternal), aunt (paternal)). Films Compared 05/23/2023 MAMMOGRAM SCREENING AMY BILATERAL, 03/02/2022 MAMMOGRAM SCREENING BILATERAL, 12/13/2020 MAMMOGRAM SCREENING BILATERAL, 07/16/2019 MAMMOGRAM SCREENING BILATERAL, 07/15/2018 MAMMOGRAM SCREENING BILATERAL, and 05/18/2016 US BREAST LIMITED BILATERAL Findings The breasts are heterogeneously dense, which may obscure small masses. There is no evidence of suspicious masses, calcifications, or other abnormal findings. Impression Bilateral No mammographic evidence of malignancy. BI-RADS Category: 1 - Negative. Recommendation Screening mammogram in 1 year is recommended for both breasts. Digital breast tomosynthesis was performed. This digital mammogram has been analyzed with the computer aided detection system. Breast tissue can be either dense or not dense. Dense tissue makes it harder to find breast cancer on a mammogram and also raises the risk of developing breast cancer. Your breast tissue is dense. In some people with dense tissue, other imaging tests in addition to a mammogram may help find cancers. Talk to your healthcare provider about breast density, risks for breast cancer, and your individual situation. This examination was performed at [facility], [facility] [place] [address]. [phone] Boyd Alarcon MD RAD MAMMOGRAPH Y documented in this encounter Visit Diagnoses Diagnosis Screening mammogram, encounter for documented in this encounter Care Teams Policy Change Clerk Relationship Specialty Start Date End Date Boyd Alarcon MD [facility] [place] [address] [address] PCP - General Internal Medicine 08/29/23 documented as of this encounter
[2024-10-31] MEDS ORDERED: ROCURONIUM BROMIDE 10 MG/ML 5 ML VIAL IV ONE ×2 (09:52→10:40)
[2024-10-31] MEDS: LR 15ML/HR IV SCH (09:52)
[2024-10-31] MEDS ORDERED: fentaNYL citrate PF 100 MCG/2 ML VIAL ONE (09:52)
[2024-10-31] MEDS ORDERED: PROPOFOL IV EMULSION 10 MG/ML 20 ML VIAL IV ONE (09:52)
[2024-10-31] MEDS ORDERED: MIDAZOLAM HCL 1 MG/ML 2ML VIAL ONE (09:52)
[2024-10-31] MEDS ORDERED: LIDOCAINE 2% 2 ML VIAL/AMP(20MG/ML) INFIL ONE (09:52)
[2024-10-31] MEDS ORDERED: ONDANSETRON INJ 2 MG/ML 2 ML VIAL IV PRN ×2 (10:10→12:45)
[2024-10-31] MEDS ORDERED: ePHEDrine sulfate 50 MG/ML AMP IV PRN (10:10)
[2024-10-31] MEDS ORDERED: HYDROmorphone INJ 1 MG/ML SYRINGE IV PRN (10:10)
[2024-10-31] MEDS ORDERED: PROMETHAZINE HCL 6.25 MG in SODIUM CHLORIDE 0.9% 50 ML IV PRN (10:10)
[2024-10-31] MEDS ORDERED: ATROPINE SULFATE 0.1 MG/ML 10ML SYR IV PRN (10:10)
[2024-10-31] MEDS ORDERED: KETAMINE HCL 10MG/ML SYR ONE (10:41)
[2024-10-31] MEDS ORDERED: HYDROmorphone INJ 2 MG/ML SYR/VIAL ONE (10:42)
[2024-10-31] MEDS ORDERED: LABETALOL HCL IV 5 MG/ML 20ML IV ONE (10:56)
[2024-10-31] MEDS: LIDOCAINE 1%/EPINEPHRINE 1:100,000 50 ML VIAL ONE (12:30)
[2024-10-31] MEDS: PREMARIN VAG CRM 14 APPLN/30 GM TUBE ONE (12:30)
[2024-10-31] MEDS ORDERED: SUGAMMADEX SODIUM 200 MG/2 ML VIAL IV ONE ×2 (12:35→12:47)
[2024-10-31] MEDS ORDERED: ACETAMINOPHEN 325 MG TAB PO PRN (12:45)
[2024-10-31] MEDS ORDERED: IBUPROFEN 600 MG TAB PO PRN (12:45)
--- NOTE | 2024-10-31 12:53 | Operative Report ---
Post Operative Report Pre & Post Diagnosis Operation Date: 10/31/24 10:30 Pre-Op Diagnosis: Incomplete Uterovaginal Prolapse, Failed pessary therapy and now desires surgery Post-Op Diagnosis: Incomplete Uterovaginal Prolapse, Failed pessary therapy and now desires surgery I identified the patient and participated in the time-out.: Yes Procedure Operation Date: 10/31/24 10:30 Actual Procedures p Laparoscopic lysis of adhesions, Robotic Assisted Hysterectomy, Bilateral Salpingo-Oophorectomy, Ureterosacral Ligament Suspension, Anterior and Posterior Colporrhaphy and Cystoscopy- Jaylon Gurrola MD Surgeon Jaylon Gurrola MD Jewel Setter Latonya Hamilton PA-C Estimated Blood Loss 50 Findings Consistent with Post-Op Diagnosis Adhesions of the omentum to the anterior abdominal wall in the midline. Grade 3 cystocele, grade 2 uterine prolapse, grade 2 rectocele. Normal appearing uterus, cervix, tubes, and ovaries.Normal cystoscopy with excellent efflux of ureters bilaterally. Fluids crystalloid Specimens cervix, uterus, tubes, and ovaries Drains Garcia catheter Anesthesia Type General Complications none Disposition Accompanied Patient To Recovery: Yes Disposition: Recovery Room Indications symptomatic uterovaginal prolapse Description of Procedure After Markell William was correctly identified in the preop area, the surgical procedure, indications, risks, benefits, and alternatives were reviewed. All questions answered and informed consent was confirmed. The patient was taken to the operating room and general anesthesia was provided by anesthesia service. She was placed in Edward Stirrups, prepped and draped in the usual sterile fashion. Time out was performed. A Garcia catheter was placed into the bladder. The cervix was then serially dilated and a medium size V-Care uterine manipulator was applied. At the umbilicus, an 8 mm trocar with Optivew was placed through an incision, the fascia, and into the abdominal cavity. The abdomen was insufflated with CO2 gas. Inspection of the entry site and abdominal wall revealed adhesions of the omentum to the anterior abdominal wall in the midline. Two 8 mm trocars were placed on the left. Using the harmonic scalpel the omental adhesions were taken down. An 8 mm trocar were placed on the right. Patient was placed in moderate Trendelenburg position and the robot was docked. The ureters were easily identified. The IP ligaments were bilaterally vessel sealed and transected. The round ligaments were bilaterally vessel sealed and transected. The bladder flap was developed and the uterine vessels were dissected. The uterine vessels were then vessel sealed and transected at the level of the cervical cup. A colpotomy incision was made following the contours of the cervical cup. The cervix, uterus, tubes and ovaries were delivered out the vagina and sent to pathology. The vaginal cuff was closed with 0 V-lock suture in a running fashion. The uterosacral ligaments were well visualized. 0 V-lock suture was then placed through the proximal right uterosacral ligament which was then transfixed to the right corner of the vaginal cuff. In a similar fashion, 0 V-lock suture was placed through the left proximal uterosacral ligament and transfixed to the left corner of the vaginal vaginal cuff. Excellent hemostasis was confirmed. Inspection of the omentum, small and large bowels revealed excellent hemostasis and no lesions. The robot was undocked, the incisions were closed with 4-0 Monocryl in a subcuticular fashion and dressed with surgical glue. Vaginally, the vaginal mucosa over the cystocele was sharply dissected and the pubocervical fascia was imbricated in the midline with two rows of interrupted sutures of 2-0 Vicryl. The incision was then closed with 2-0 Vicryl in a running fashion. In a similar fashion, the vaginal mucosa over the rectocele was sharply dissected and the rectovaginal fascia was imbricated in the midline with two rows of interrupted sutures of 2-0 Vicryl. The incision was then closed with 2-0 Vicryl in a running fashion. Excellent hemostasis was confirmed. Cystoscopy was performed with a 17 Latvian 70 deg cystoscope with 250 ml of irrigation fluid. Inspection of the bladder dome, trigone, and urethra revealed no lesions. Excellent efflux of ureters were demonstrated bilaterally. The bladder was emptied and the cystoscope was removed. The Garcia catheter was placed into the bladder. The vagina was irrigated and packed with estrogen cream and vaginal packing. All sponge, lap, and needle counts were correct. The patient tolerated the procedure well, awakened, and sent to recovery room in good condition. I attest to the content of the Intraoperative Record and any orders documented therein. Any exceptions are noted below. No qualified resident was available. Latonya Hamilton PA-C was necessary to assist for the procedures including patient positioning, draping, robotic docking, robotic instrument exchange, robotic assistance, retraction, irrigation, and wound closure.
[2024-10-31] MEDS: fentaNYL citrate PF 100 MCG/2 ML VIAL IV PRN (13:39)
--- NOTE | 2024-10-31 14:18 | Anesthesiology Progress Note ---
Date of Service October 31, 2024 Anesthesia Post Procedure Vital Signs Vital Signs: Temp Pulse Pulse Resp BP Pulse Ox O2 Del Method 10/31/24 14:10 73 12 121/69 98 Nasal Cannula 10/31/24 14:00 71 12 98/72 L 93 Nasal Cannula 10/31/24 13:50 80 14 120/69 92 Nasal Cannula 10/31/24 13:40 71 12 129/84 96 Nasal Cannula 10/31/24 13:30 75 12 125/76 98 Oxymask 10/31/24 13:15 83 12 130/78 98 Oxymask 10/31/24 13:05 84 12 127/69 98 Oxymask 10/31/24 12:55 36.0 C L 79 12 130/77 99 Oxymask 10/31/24 09:43 36.4 C L 71 20 139/76 98 Room Air O2 Flow Rate 10/31/24 14:10 4 10/31/24 14:00 4 10/31/24 13:50 2 10/31/24 13:40 2 10/31/24 13:30 4 10/31/24 13:15 4 10/31/24 13:05 4 10/31/24 12:55 8 10/31/24 09:43 Pain Intensity Abdomen: Pain Intensity: 4 Transfer of Care Handoff Completed per policy Notes Mental Status: alert / awake / arousable Patient Amnestic to Procedure: Yes Nausea / Vomiting: adequately controlled Pain: adequately controlled Airway Patency, RR, SpO2: stable & adequate BP & HR: stable & adequate Hydration State: stable & adequate Anesthetic Complications: no major complications apparent and Pt Satisfied with anesthetic care
[2024-10-31] MEDS: KETOROLAC TROMETHAMINE 15 MG/ML VIAL IV PRN (15:17)
[2024-10-31] MEDS: oxyCODONE/ACETAMINOPHEN 5mg/325mg TAB PO PRN ×2 (16:39→21:06)
[2024-10-31] MEDS: ACETAMINOPHEN 325 MG TAB PO SCH (18:31)
[2024-10-31] MEDS: IBUPROFEN 600 MG TAB PO SCH (18:33)
[2024-11-01 07:04] LABS: Basophils # (auto) 0.06 K/uL (0.00-0.20); Basophils % (auto) 0.6 %; Eosinophils # (auto) 0.11 K/uL (0.00-0.50); Eosinophils % (auto) 1.1 %; Hematocrit (blood only) 35.7 % (37.0-47.0); Immature Granulocytes # (auto) 0.04 K/uL (0.01-0.20); Immature Granulocytes % (auto) 0.4 %; Lymphocytes # (auto) 1.52 K/uL (1.20-3.40); Lymphocytes % (auto) 15.8 %; Mean Corpuscular Hemoglobin 31.7 pg (25.0-34.0); Mean Corpuscular Hgb Conc 33.6 g/dL (32.0-36.0); Mean Corpuscular Volume 94.2 fL (80.0-100.0); Monocytes # (auto) 1.03 K/uL (0.11-0.59); Monocytes % (auto) 10.7 %; Neutrophils # (auto) 6.86 K/uL (1.40-6.50); Neutrophils % (auto) 71.4 %; Platelet Count 192 K/uL (130-400); RDW Coefficient of Variation 13.2 % (11.5-14.5); RDW Standard Deviation 45.1 fL (36.4-46.3); Red Blood Count 3.79 M/uL (4.20-5.40); White Blood Count 9.62 K/ul (4.8-10.8)
[2024-11-01 07:25] LABS: BUN Creatinine Ratio 15.2 (10-20); Calcium 8.6 mg/dl (8.6-10.3); Creatinine Clr Calc Pharmacy 63.7 ml/min; Potassium 3.7 mmol/L (3.5-5.1)
--- NOTE | 2024-11-01 08:37 | Progress Note ---
Date of Service November 01, 2024 Assessment & Plan (1) Uterovaginal prolapse, incomplete: Plan: POD #1 s/p laparoscopic lysis of adhesions, robotic hysterectomy, bso, uterosacral ligament suspension, anterior and posterior colporrhaphy, and cystoscopy. Recovering well. Hemodynamically stable, tolerating diet. Reviewed operative findings. Garcia removed and packing removed this AM, After patient is able to void, discharge home. Post op instructions reviewed. All questions answered. Present on Admission?: Yes Admission and Anticipated Discharge Date Admission Date: October 31, 2024 Anticipated date of discharge: 11/01/24 Subjective Feeling well. Pain well controlled. Denies chest pain, SOB,nausea Review of Systems Review of Systems: All systems reviewed & are unremarkable except as noted in HPI & below Physical Exam Constitutional: WD/WN, vitals as above Eyes: PERRL, conjunctivae normal, anicteric sclerae Neck: trachea midline, no thyromegaly Respiratory: normal respiratory effort and + respiratory distress Cardiovascular: Rate/Rhythm: regular rate and regular rhythm Gastrointestinal (Abdomen): normal bowel sounds, soft, nontender, no hepatosplenomegaly Musculoskeletal: no cyanosis or clubbing, extremities motor strength 5/5 Skin: no rashes, warm and dry Neurologic: PERRL, EOMI, accommodation nl, no face palsy, no dysarthria Psychiatric: A+Ox3, euthymic affect Genitourinary: vaginal packing removed, dry Results & Data Vital Signs (Past 12 Hours) Vital Signs Temp Pulse Resp BP Pulse Ox O2 Del Method 11/01/24 02:58 36.6 C 83 16 97/57 L 98 Room Air 10/31/24 22:45 36.5 C 89 16 118/59 L 95 Room Air Laboratory Results normal post op labs reviewed
[2024-11-01] MEDS: ATORVASTATIN 10 MG TAB PO SCH (08:41)
[2024-11-01] MEDS: FLUTICASONE/VILANTEROL 200/25MCG 14 PUFFS/INHALER INH SCH (08:41)
[2024-11-01] MEDS: CEROVITE ADV FORMULA TAB PO SCH (08:41)
[2024-11-01] MEDS: PANTOprazole 40 MG TAB PO SCH (08:41)
--- OUTSIDE RECORDS SUMMARY | 2024-11-01 08:48 | External Medical Summary | Summary of Care ---
Author Name Unknown Organization [facility] Address [address] [facility] [place] [address] Phone [phone] Care Team Providers Care Top Dyeing Machine Tender Name Role Phone Boyd Alarcon MD Primary Care Provider Reason for Visit * Reason Comments NEW PATIENT * Evaluate & Treat - Unlimited Visits (Within 30 days (routine)) - Authorized Specialty Diagnoses / Procedures Referred By Contact Referred To Contact SMALL ANIMAL CARETAKER - Urogynecology / Gynecology Urology Diagnoses Female bladder prolapse, acquired Specialist, Self Referral To [address] ADDRESS AVAILABLE Referral ID Status Reason Start Date Expiration Date Visits Requested Visits Authorized [id number] Authorized Specialty Services Required [phone] Encounter Details Date Type Department Care Team (Late st Contact Info) Description 08/11/2024 12:50 PM EST Office Visit Urogynecology [facility] [address] [place] [address] Jaylon Gurrola MD [address] [facility] [place] [id number] Uterovaginal prolapse, incomplete*; Urge incontinence; Urinary urgency; Urinary frequency Allergies Active Allergy Reactions Criticality Noted Date Comments Pollen Other (Please comment) High 02/05/2020 Itchy watery eyes and congestion. Molds & Smuts 11/18/2019 Sneezing documented as of this encounter (statuses as of 11/01/2024) Medications fexofenadine-pse udoephedrine ER 60-120 mg per [...] puff before bedtime 180 Each 3 Active oxyCODONE HCl 5 MG Oral Tablet (Oxy IR) Take 1 Tablet by mouth every 8 hours as needed for Pain, Severe. 5 Tablet 5 Active Ibuprofen 600 MG Oral Tablet (Motrin) Take 1 Tablet by mouth every 6 hours as needed (post operative pain). With food. 30 Tablet 5 Active documented as of this encounter (statuses as of 11/01/2024) Active Problems Problem Noted Date Diagnosed Date Hepatic cyst 08/09/2020 Overview (08/09/2020): F/U abdominal ultrasound due 05/2021. Fatty liver 08/09/2020 Overview (08/09/2020): GI evaluation 07/2020, continue to monitor LFTs yearly. Anxiety disorder Constipation COPD (chronic obstructive pulmonary disease) GERD (gastroesophageal reflux disease) Hypercholesteremia Osteopenia documented as of this encounter (statuses as of 11/01/2024) Resolved Problems Problem Noted Date Diagnosed Date Resolved Date Asthma 09/25/2019 documented as of this encounter (statuses as of 11/01/2024) Immunizations Name Administration Dates Next Due Pneumococcal [...] 18 years and over) Not on file 07/17/202 3 Are you (or your family) saloni eless [...] Stability Do you currently live in a fdc or have no steady place to sleep [...] PSYCHIATRIC ROS: no depression and no anxiety Medical Communication Specialist Documentation: Provider requested health social work professor Name of Medical Communication Specialist: Kristi Bravo Blood pressure 128/82, height 1.575 [...] size. No adnexal masses or tenderness elicited. ELDERLY CAREGIVER: neg Levator ani muscle strength 3. No [...] 1x PVR- 31 documented in this encounter Miscellaneous Notes * Addendum Note - Jaylon Gurrola MD - 11/01/2024 8:42 AM ESTAddended by: JAYLON GURROLA on: 11/01/2024 08:42 AM Modules accepted: Orders documented in this encounter Plan of Treatment Upcoming Encounters Date Type Department Care Team (Late st Contact Info) Description 11/19/2024 8:00 AM EDT Telemedicine Urogynecology [facility] [address] [place] [address] Jaylon Gurrola MD [address] [place] [address] 12/10/2024 1:30 PM EDT Office Visit Urogynecology [facility] [address] [place] [address] Jaylon Gurrola MD [address] [place] [address] Scheduled Orders Name Type Priority Associated Diagnoses [...] frequency documented in this encounter Care Teams Top Dyeing Machine Tender Relationship Specialty Start Date End Date Boyd Alarcon MD [address] [facility] [place] [address] PCP - General Internal Medicine 08/29/23 documented as of this encounter
--- NOTE | 2024-11-01 08:51 | Discharge Summary ---
Date of Service November 01, 2024 Admission HPI Per Admitting Provider Markell William is a 64 year old female P 3 here for evaluation of prolapse. Referred by Boyd Alarcon MD. Markell William complains of a vaginal bulge. She also has urinary frequency every 2 hours in the daytime and occasional urge incontinence. She denies LIZETT symptoms. She was diagnosed with uterine and bladder prolapse with Dr. Calixto in 2020. She tried a pessary but it was uncomfortable and she did not continue using it. Urinary: Leakage: urge Has leakage about once a week Wears pads: occasionally She denies a sense of incomplete bladder emptying. Prior/current treatment include: pessary UTI: denies Voiding detail: Daytime frequency: every 2 hours Urgency yes Nocturia:once a night Hesitancy no Straining no Hematuria no Postvoid dribbling no Postvoid urgency no Manual reduction no Prolapse: She admits a palpable bulge. Her bulge symptoms have worsened over the last few years Prior/ current treatments include pessary GI: Bowel habits: normal bowel movement She denies fecal incontinence. Prior/ current treatments include: none Admission Exam (Per Admitting) Constitutional WD/WN, vitals as above Eyes PERRL, conjunctivae normal, anicteric sclerae Neck trachea midline, no thyromegaly Respiratory normal respiratory effort and + respiratory distress Cardiovascular Rate/Rhythm: regular rate and regular rhythm Gastrointestinal (Abdomen) normal bowel sounds, soft, nontender, no hepatosplenomegaly Musculoskeletal no cyanosis or clubbing, extremities motor strength 5/5 Skin no rashes, warm and dry Neurologic PERRL, EOMI, accommodation nl, no face palsy, no dysarthria Psychiatric A+Ox3, euthymic affect Discharge Data Procedures Performed Operation Date: 10/31/24 10:30 Actual Procedures p Robotic Assisted Hysterectomy, Bilateral Salpingo-Oophorectomy, Ureterosacral Ligament Suspension, Anterior Colporrhaphy and ,(Bilateral) - Jaylon Gurrola MD s Sling - Jaylon Gurrola MD s Cystoscopy - Jaylon Gurrola MD Hospital Course (1) Uterovaginal prolapse, incomplete: POD #1 s/p laparoscopic lysis of adhesions, robotic hysterectomy, bso, uterosacral ligament suspension, anterior and posterior colporrhaphy, and cystoscopy. Recovering well. Hemodynamically stable, tolerating diet. Reviewed operative findings. Garcia removed and packing removed this AM, After patient is able to void, discharge home. Post op instructions reviewed. All questions answered.
[2024-11-01 10:02] VITALS: BP 108/54; RESP 18; TEMP 97.5; O2SAT 95
[2024-11-01 10:08] VITALS: PULSE 76
== END 2024-11-01 12:30 | disposition home or self-care (01) ==
LOC: 4E1 08:40 → ASU 08:40